=== PATIENT | female | born 1975 | race Hispanic/Latino ===

== ENCOUNTER 2017-07-30 15:09 | Outpatient (CLI) | payer OTHER ==
--- NOTE | 2017-07-30 15:40 | MMO ---
BILATERAL SCREENING MAMMOGRAM: Date: 07/30/17 HISTORY: 41-year-old female. Routine screening mammography. COMPARISON: 07/04/10. TECHNIQUE: CC and MLO views of both breasts are submitted for interpretation. This patient's mammogram was reviewed with the assistance of computer-aided detection. FINDINGS: The breasts are composed of heterogeneously dense fibroglandular tissue, which limits the sensitivity of mammography in the detection of underlying malignancy. Right Breast: No suspicious dominant mass, architectural distortion, or suspicious calcification. Left Breast: In the left retroareolar region, there are new calcifications which have developed since the previous examination. Questionable associated mass. IMPRESSION: BIRADS 0: Incomplete: Need Additional Imaging Evaluation and/or Prior Mammograms for Comparison RECOMMENDATION: Spot magnification view of left breast in CC and MLO projection. Mediolateral view should be performe d. The facility will notify the patient of the need for additional imaging services. POS: [facility]
== END 2017-07-30 15:10 | disposition home or self-care (01) ==
LOC: SCSMAMMO 15:09
DX: Z12.31 Encounter for screening mammogram for malignant neoplasm of breast (principal)
CPT/HCPCS: 77067; G0202

== ENCOUNTER 2017-10-24 14:37 | Outpatient (CLI) | payer OTHER | END 2017-10-24 14:38 | disposition home or self-care (01) | LOC: BICMAMMO 14:37 | DX: N63.20 Unspecified lump in the left breast, unspecified quadrant (principal); R92.1 Mammographic calcification found on diagnostic imaging of breast; Z80.3 Family history of malignant neoplasm of breast | CPT/HCPCS: G0279 ==